=== PATIENT | female | born 1990 | race Caucasian/White ===

== ENCOUNTER 2017-04-03 16:24 | Emergency (ER) | payer OTHER ==
[~2017-04-03] VITALS: Ht 162.6 cm; Wt 71.4 kg
[2017-04-03 16:29] VITALS: BP 115/82; TEMP 98.3
[2017-04-03 17:10] VITALS: PULSE 88
== END 2017-04-03 17:14 | disposition home or self-care (01) ==
LOC: COL.ER 16:24
DX: T63.301A Toxic effect of unspecified spider venom, accidental (unintentional), initial encounter (principal); L25.8 Unspecified contact dermatitis due to other agents